=== PATIENT | male | born 2000 | race African-American/Black ===

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

== ENCOUNTER 2018-04-08 23:10 | Emergency (ER) | payer SELFPAY ==
[2018-04-08 23:26] VITALS: BP 107/58
--- NOTE | 2018-04-08 23:48 | ER Document Report ---
ED General - General Chief Complaint: Headache Stated Complaint: HEADACHES, TROUBLE EATING, KNEE PAIN Time Seen by Provider: 04/08/18 23:45 Information source: Patient Notes: Patient is a 17-year-old male who presents to the emergency department with a chief complaint of a headache. He states the headache started 2 days ago. The headache is in his latter day area. He also has had some upper respiratory symptoms, such as runny nose. He also has complaints of not being able to eat. He denies any nausea, vomiting, diarrhea, he just states he just does not want to eat. He states he has been taking Tylenol PM at home to help with his symptoms. He also complains of left knee pain which he states is a chronic problem. He has no past medical history. TRAVEL OUTSIDE OF THE [place] IN LAST 30 DAYS: No - Related Data Allergies/Adverse Reactions: No Known Allergies Allergy (Verified 05/27/17 11:01) Past Medical History - Social History Smoking Status: Unknown if Ever Smoked Lives with: Family Family History: Reviewed & Not Pertinent Renal/ Medical History: Denies: Hx Peritoneal Dialysis GI Medical History: Reports: Hx Gastroesophageal Reflux Disease - Immunizations Immunizations up to date: Yes Hx Diphtheria, Pertussis, Tetanus Vaccination: Yes Review of Systems - Review of Systems Notes: REVIEW OF SYSTEMS: CONSTITUTIONAL : Denies recent illness. Denies recent unintentional weight loss. Denies fever, chills, or sweats. EENT: Denies eye, ear, throat, or mouth pain, discharge, or symptoms. Denies nasal or sinus congestion. CARDIOVASCULAR: Denies chest pain. RESPIRATORY: Denies shortness of breath, cough, congestion, difficulty breathing, or wheezing. GASTROINTESTINAL: See HPI GENITOURINARY: Denies difficulty urinating, burning, blood in urine, urgency or frequency. MUSCULOSKELETAL: See HPI SKIN: Denies rash, itchiness, or lesions HEMATOLOGIC : Denies easy bruising or bleeding. LYMPHATIC: Denies swollen, painful, enlarged glands. NEUROLOGICAL: See HPI PSYCHIATRIC: Denies stress, anxiety, alteration in sleep patterns, or depression. All other systems reviewed and negative. Physical Exam - Vital signs Vitals: Temp Pulse Resp BP Pulse Ox 99.0 F 58 L 16 107/58 L 98 04/08/18 23:21 04/08/18 23:21 04/08/18 23:21 04/08/18 23:21 04/08/18 23:21 - General General appearance: Appears well - Respiratory Respiratory status: No respiratory distress. No: Respiratory distress Chest status: No: No pleuritic chest pain Breath sounds: Normal - Cardiovascular Rhythm: Regular Course - Re-evaluation Re-evalutation: 04/09/18 00:44 I attempted to find the patient in the waiting room, and the patient was not there. My first assessment was in triage, and I was only able to perform a focused assessment. Unfortunately due to the patient's elopement, he is unable to have a full workup. - Vital Signs Vital signs: Temp Pulse Resp BP Pulse Ox 99.0 F 58 L 16 107/58 L 98 04/08/18 23:21 04/08/18 23:21 04/08/18 23:21 04/08/18 23:21 04/08/18 23:21
== END 2018-04-09 00:40 | disposition left against medical advice (07) ==
LOC: ER 23:10
DX: Z53.21 Procedure and treatment not carried out due to patient leaving prior to being seen by health care provider (principal); R51 Headache; R09.89 Other specified symptoms and signs involving the circulatory and respiratory systems; M25.562 Pain in left knee
CPT/HCPCS: 99281

== ENCOUNTER 2018-09-15 11:38 | Emergency (ER) | payer SELFPAY ==
[2018-09-15 11:57] VITALS: BP 131/64
[2018-09-15] MEDS ORDERED: MAG HYDROX/AL HYDROX/SIMETH SUSP 30 ML UDCUP PO ONE (12:49)
[2018-09-15] MEDS ORDERED: LIDOCAINE 2% VISCOUS SOLN 20 ML UDCUP PO ONE (12:49)
[2018-09-15] MEDS ORDERED: METOCLOPRAMIDE HCL ORAL SOLN 10 MG/10 ML UDCUP PO ONE (12:49)
--- NOTE | 2018-09-15 12:50 | ER Document Report ---
ED Medical Screen (RME) - General Chief Complaint: Abdominal Pain Stated Complaint: STOMACH PAIN Time Seen by Provider: 09/15/18 12:47 TRAVEL OUTSIDE OF THE [place] IN LAST 30 DAYS: No - HPI Notes: 09/15/18 12:49 Patient is a 17-year-old male with no significant past medical history who presents complaining of that began yesterday and is described as burning. Patient states that he has had decreased p.o. intake and has not eaten much today at all. Pain does not radiate. He is not aware of anything that improves or worsens his pain. He is still urinating normally and having normal bowel movements. No surgical history to his abdomen. Denies drug allergies. Denies SANTORO, fever, neck pain, URI, CP, SOB, n/v/d, dysuria, back pain, or rash. I have treated and performed a rapid initial assessment of this patient. A comprehensive ED assessment and evaluation of the patient, analysis of test results and completion of medical decision making process will be conducted by additional ED providers. PHYSICAL EXAMINATION: GENERAL: Well-appearing, well-nourished and in no acute distress. A&Ox4. Answers questions appropriately. LUNGS: Breath sounds clear to auscultation bilaterally and equal. No wheezes rales or rhonchi. HEART: Regular rate and rhythm without murmurs, rubs, gallops. ABDOMEN: Soft, nondistended abdomen. No guarding, no rebound. Normal bowel sounds present. No CVA tenderness bilaterally. + epigastric tenderness (cannot elicit thorough abd exam w/o bed, however). Extremities: No cyanosis, clubbing, or edema b/l. NEUROLOGICAL: Normal speech, normal gait. PSYCH: Normal mood, normal affect. - Related Data Allergies/Adverse Reactions: No Known Allergies Allergy (Verified 09/15/18 11:47) Past Medical History - Social History Frequency of alcohol use: None Drug Abuse: None Renal/ Medical History: Denies: Hx Peritoneal Dialysis GI Medical History: Reports: Hx Gastroesophageal Reflux Disease - Immunizations Immunizations up to date: Yes Hx Diphtheria, Pertussis, Tetanus Vaccination: Yes Physical Exam - Vital signs Vitals: Temp Pulse Resp BP Pulse Ox 98.2 F 69 18 131/64 H 100 09/15/18 11:55 09/15/18 11:55 09/15/18 11:55 09/15/18 11:55 09/15/18 11:55 Course - Vital Signs Vital signs: Temp Pulse Resp BP Pulse Ox 98.2 F 69 18 131/64 H 100 09/15/18 11:55 09/15/18 11:55 09/15/18 11:55 09/15/18 11:55 09/15/18 11:55
[2018-09-15 13:20] LABS: ABSOLUTE EOSINOPHILS # (AUTO) 0.1 10^3/uL (0.0-0.6); ABSOLUTE LYMPHOCYTES (AUTO) 1.8 10^3/uL (0.5-4.7); ABSOLUTE MONOCYTES (AUTO) 0.4 10^3/uL (0.1-1.4); BASOPHILS % (AUTO) 0.7 % (0-2); HEMATOCRIT 45.3 % (37.9-51.0); LYMPHOCYTES % (AUTO) 28.2 % (13-45); MEAN CORPUSCULAR HGB CONC 33.1 g/dL (32.0-36.0); MEAN CORPUSCULAR VOLUME 82 fl (80-97); MONOCYTES % (AUTO) 6.3 % (3-13); PLATELET COUNT 178 10^3/uL (150-450); RED BLOOD COUNT 5.55 10^6/uL (4.35-5.55); RED CELL DISTRIBUTION WIDTH 13.9 % (11.5-14.0); SEGMENTED NEUTROPHILS % (AUTO) 63.8 % (42-78); TOTAL CELLS COUNTED % (AUTO) 100 %; WHITE BLOOD COUNT 6.3 10^3/uL (4.0-10.5)
[2018-09-15 13:40] LABS: ALANINE AMINOTRANSFERASE 17 U/L (10-40); ALBUMIN 5.1 g/dL (3.7-5.6); ALKALINE PHOSPHATASE 62 U/L (65-260); ANION GAP 11 (5-19); ASPARTATE AMINO TRANSFERASE 31 U/L (10-45); BILIRUBIN,DIRECT 0.4 mg/dL (0.0-0.4); BILIRUBIN,TOTAL 2.2 mg/dL (0.2-1.3); BLOOD UREA NITROGEN 13 mg/dL (7-20); CALCIUM 10.2 mg/dL (8.4-10.2); CARBON DIOXIDE 30 mmol/L (22-30); CHLORIDE 102 mmol/L (98-107); GLUCOSE 94 mg/dL (75-110); LIPASE 52.5 U/L (23-300); POTASSIUM 4.4 mmol/L (3.6-5.0); SODIUM 143.3 mmol/L (137-145); TOTAL PROTEIN 9.1 g/dL (6.3-8.2)
== END 2018-09-15 14:30 | disposition left against medical advice (07) ==
LOC: ER 11:38
DX: R10.9 Unspecified abdominal pain (principal)
CPT/HCPCS: 99281; 36415; 83690; 85025; 80053; J3490